=== PATIENT | male | born 1985 ===

== ENCOUNTER 2020-05-08 09:52 | Inpatient (IN) | payer OTHER ==
[~2020-05-08] VITALS: Ht 167.6 cm; Wt 86.4 kg
[2020-05-08 10:33] LABS: BASOPHILS 0.2 % (0-2); EOSINOPHILS 0.1 % (0-7); HEMATOCRIT 44.4 % (42.0-54.0); HEMOGLOBIN 15.8 g/dL (13.5-17.5); IMMATURE GRANULOCYTES 2.8 % (0-5); LYMPHOCYTE ABS# 2.03 10x3/uL (1.32-3.57); LYMPHOCYTES 10.8 % (15-50); MCH 31.4 pg (26.0-34.0); MCHC 35.6 g/dL (31.0-37.0); MCV 88.3 fL (80.0-100.0); MEAN PLATELET VOLUME 9.5 fL (7.4-10.4); MONOCYTES 6.2 % (2-11); NEUTROPHILS 79.9 % (40-80); PLATELET COUNT 231 10x3/uL (130-400); RBC 5.03 10x6/uL (4.20-6.10); RDW 12.8 % (11.5-14.5); WBC 18.8 10x3/uL (4.8-10.8)
[2020-05-08 10:41] LABS: CALC OSMOLALITY 274 mosm/kg (275-300); CALCIUM 8.9 mg/dL (8.5-10.1); CHLORIDE - SERUM 102 mmol/L (98-107); GLUCOSE 140 mg/dL (74-106); POTASSIUM - SERUM 3.3 mmol/L (3.5-5.1); SODIUM 135 mmol/L (136-145); UREA NITROGEN 22 mg/dL (7-18); eGFR NON AFRICAN AMERICAN 90 mL/min (90-120)
[2020-05-08 10:49] LABS: APTT 22.6 SECONDS (22.8-39.4); INR 1.02 (0.85-1.17); PROTIME 12.4 SECONDS (11.6-15.0)
[2020-05-08 10:59] LABS: ALBUMIN 3.6 g/dL (3.4-5.0); ALKALINE PHOSPHATASE 78 U/L (30-120); ALT (SGPT) 58 U/L (10-68); BILIRUBIN - TOTAL 0.32 mg/dL (0.2-1.3); CKMB 0.3 U/L (0.0-3.6); CREATINE KINASE 17 UL (21-232); PRO BNP 49 pg/mL (0-125); PROTEIN - SERUM 6.5 g/dL (6.4-8.2); TROPONIN-I < 0.017 ng/mL (0.000-0.060)
[2020-05-08 11:04] VITALS: BP 116/73
[2020-05-08 12:09] VITALS: BP 124/84
--- NOTE | 2020-05-08 12:25 | NUR ---
FLU, STREP, AND RSV SWABS OBTAINED AND SENT TO THE LAB.
[2020-05-08 12:54] LABS: INFLUENZA TYPE A NEGATIVE (NEGATIVE); INFLUENZA TYPE B NEGATIVE (NEGATIVE)
[2020-05-08 13:00] VITALS: BP 117/73
[2020-05-08 13:03] LABS: BILIRUBIN NEGATIVE (NEGATIVE); KETONE NEGATIVE (NEGATIVE); NITRITE NEGATIVE (NEGATIVE); UROBILINOGEN NORMAL mg/dL (< 2)
[2020-05-08 14:06] VITALS: BP 132/78
[2020-05-08 15:00] VITALS: BP 120/51
[2020-05-08 16:26] LABS: ERYTHROCYTE SEDIMENTATION RATE 3 mm/hr (0-15)
--- NOTE | 2020-05-08 19:00 | NUR ---
REPORT TO SEVERO GODWIN
--- NOTE | 2020-05-08 20:19 | NUR ---
PT FROM ER VIA W/C AT THIS TIME, PT AMBULATED TO BED, NO DISTRESS NOTED, CL IN REACH, SR UP X 2.
[2020-05-09 01:10] VITALS: BP 129/75; Ht 167.6 cm; Wt 86.4 kg
[2020-05-09 04:00] VITALS: BP 123/72
[2020-05-09 06:13] LABS: INR 1.11 (0.85-1.17); PROTIME 13.2 SECONDS (11.6-15.0)
[2020-05-09 06:14] LABS: APTT 25.5 SECONDS (22.8-39.4)
[2020-05-09 06:18] LABS: BASOPHILS 0.1 % (0-2); EOSINOPHILS 0 % (0-7); HEMATOCRIT 42.9 % (42.0-54.0); HEMOGLOBIN 14.5 g/dL (13.5-17.5); IMMATURE GRANULOCYTES 2.2 % (0-5); LYMPHOCYTE ABS# 1.12 10x3/uL (1.32-3.57); LYMPHOCYTES 7.4 % (15-50); MCH 30.7 pg (26.0-34.0); MCHC 33.8 g/dL (31.0-37.0); MCV 90.7 fL (80.0-100.0); MEAN PLATELET VOLUME 9.7 fL (7.4-10.4); MONOCYTES 4.7 % (2-11); NEUTROPHIL ABS# 12.99 10x3/uL (1.78-5.38); NEUTROPHILS 85.6 % (40-80); PLATELET COUNT 240 10x3/uL (130-400); RBC 4.73 10x6/uL (4.20-6.10); WBC 15.2 10x3/uL (4.8-10.8)
--- NOTE | 2020-05-09 07:20 | NUR ---
LYING IN BED, AWAKE/ALERT/ORIENTED, T/R SELF AD LORIN, CONT OF B/B WITH BRPs PER SELF AD LORIN, DENIES PAIN/OTHER DISCOMFORT AT THIS TIME, CALL LIGHT/PHONE/WATER WITHIN REACH, NO S/S OF ACUTE DISTRESS OBSERVED.
[2020-05-09 07:26] LABS: ALBUMIN 3.2 g/dL (3.4-5.0); ALKALINE PHOSPHATASE 61 U/L (30-120); ALT (SGPT) 50 U/L (10-68); BILIRUBIN - TOTAL 0.21 mg/dL (0.2-1.3); CALCIUM 8.3 mg/dL (8.5-10.1); CARBON DIOXIDE 23.5 mmol/L (21.0-32.0); CHLORIDE - SERUM 105 mmol/L (98-107); CREATININE - SERUM 0.9 mg/dL (0.6-1.3); GLUCOSE 140 mg/dL (74-106); MAGNESIUM - SERUM 2.1 mg/dL (1.8-2.4); SODIUM 137 mmol/L (136-145); eGFR NON AFRICAN AMERICAN > 90 mL/min (90-120)
[2020-05-09 07:27] LABS: CALC OSMOLALITY 276 mosm/kg (275-300); POTASSIUM - SERUM 4.2 mmol/L (3.5-5.1); UREA NITROGEN 15 mg/dL (7-18)
[2020-05-09 08:39] VITALS: BP 125/70
[2020-05-09 12:24] VITALS: BP 128/77
[2020-05-09 16:01] VITALS: BP 138/70
--- NOTE | 2020-05-09 18:03 | NUR ---
Obtained nasal swab for covid pcr testing after explaining procedure to pt who agreed to the test, tagged/bagged/sent to lab at this time.
--- NOTE | 2020-05-09 19:30 | NUR ---
PT IN BED, AAO X 3, RESP EVEN AND UNLABORED, NO DISTRESS NOTED, CL IN REACH, SR UP X 2.
[2020-05-09 20:00] VITALS: BP 126/74
[2020-05-10 05:29] LABS: BASOPHILS 0.1 % (0-2); EOSINOPHILS 0 % (0-7); HEMATOCRIT 44.1 % (42.0-54.0); HEMOGLOBIN 14.8 g/dL (13.5-17.5); IMMATURE GRANULOCYTES 2.3 % (0-5); LYMPHOCYTE ABS# 1.04 10x3/uL (1.32-3.57); LYMPHOCYTES 5.4 % (15-50); MCH 30.7 pg (26.0-34.0); MCHC 33.6 g/dL (31.0-37.0); MCV 91.5 fL (80.0-100.0); MEAN PLATELET VOLUME 9.8 fL (7.4-10.4); MONOCYTES 5.4 % (2-11); NEUTROPHIL ABS# 16.64 10x3/uL (1.78-5.38); NEUTROPHILS 86.8 % (40-80); PLATELET COUNT 258 10x3/uL (130-400); RBC 4.82 10x6/uL (4.20-6.10); RDW 13.2 % (11.5-14.5)
[2020-05-10 05:37] LABS: WBC 19.2 10x3/uL (4.8-10.8)
[2020-05-10 05:44] LABS: ALBUMIN 3.4 g/dL (3.4-5.0); ALKALINE PHOSPHATASE 80 U/L (30-120); ALT (SGPT) 60 U/L (10-68); BILIRUBIN - TOTAL 0.23 mg/dL (0.2-1.3); CALCIUM 8.4 mg/dL (8.5-10.1); CARBON DIOXIDE 26.6 mmol/L (21.0-32.0); CHLORIDE - SERUM 104 mmol/L (98-107); CREATININE - SERUM 0.9 mg/dL (0.6-1.3); GLUCOSE 180 mg/dL (74-106); MAGNESIUM - SERUM 2.3 mg/dL (1.8-2.4); PHOSPHOROUS 4.2 mg/dL (2.5-4.9); POTASSIUM - SERUM 3.9 mmol/L (3.5-5.1); PROTEIN - SERUM 6.2 g/dL (6.4-8.2); SODIUM 139 mmol/L (136-145); eGFR NON AFRICAN AMERICAN > 90 mL/min (90-120)
[2020-05-10 05:50] LABS: CALC OSMOLALITY 284 mosm/kg (275-300); UREA NITROGEN 19 mg/dL (7-18)
--- NOTE | 2020-05-10 06:29 | NUR ---
I have reviewed this patient and I concur with the Shift Assessment completed by the Licensed Practical Nurse today this shift.
--- NOTE | 2020-05-10 07:30 | NUR ---
Lying in bed, awake/alert/oriented, t/r self ad cleve, cont of b/b with BRPs per self ad cleve, denies pain/other discomfort at this time, call light/phone/water within reach, no s/s of acute distress observed.
[2020-05-10 08:00] VITALS: BP 130/67
[2020-05-10 12:05] VITALS: BP 130/67
[2020-05-10 15:00] VITALS: BP 120/73
--- NOTE | 2020-05-10 19:30 | NUR ---
PT IN BED, AAO X 4, RESP EVEN AND UNLABORED, NO DISTRESS NOTED, CL IN REACH, SR UP X 2.
[2020-05-10 19:50] VITALS: BP 157/77
--- NOTE | 2020-05-11 01:08 | NUR ---
I have reviewed this patient and I concur with the Shift Assessment completed by the Licensed Practical Nurse today this shift.
[2020-05-11 04:00] VITALS: BP 146/81
[2020-05-11 04:48] LABS: BASOPHILS 0.1 % (0-2); EOSINOPHILS 0 % (0-7); HEMATOCRIT 44.4 % (42.0-54.0); HEMOGLOBIN 14.7 g/dL (13.5-17.5); IMMATURE GRANULOCYTES 4.7 % (0-5); LYMPHOCYTE ABS# 1.35 10x3/uL (1.32-3.57); LYMPHOCYTES 7.3 % (15-50); MCH 30.3 pg (26.0-34.0); MCHC 33.1 g/dL (31.0-37.0); MCV 91.5 fL (80.0-100.0); MEAN PLATELET VOLUME 9.5 fL (7.4-10.4); MONOCYTES 3.2 % (2-11); NEUTROPHIL ABS# 15.78 10x3/uL (1.78-5.38); NEUTROPHILS 84.7 % (40-80); PLATELET COUNT 244 10x3/uL (130-400); RBC 4.85 10x6/uL (4.20-6.10); RDW 13.4 % (11.5-14.5); WBC 18.6 10x3/uL (4.8-10.8)
[2020-05-11 05:09] LABS: ALBUMIN 3.4 g/dL (3.4-5.0); ANION GAP 10.2 mmol/L (8-16); BILIRUBIN - TOTAL 0.33 mg/dL (0.2-1.3); CALCIUM 8.6 mg/dL (8.5-10.1); CARBON DIOXIDE 27.8 mmol/L (21.0-32.0); MAGNESIUM - SERUM 2.3 mg/dL (1.8-2.4); PHOSPHOROUS 4.5 mg/dL (2.5-4.9); PROTEIN - SERUM 6.3 g/dL (6.4-8.2)
[2020-05-11 05:23] LABS: CREATININE - SERUM 1.2 mg/dL (0.6-1.3)
--- NOTE | 2020-05-11 07:00 | NUR ---
PT SITTING UP IN BED. RESP EVEN AND UNLABORED. AAO X4. PT DENIES NEEDS AT THIS TIME. CALL LIGHT AND WATER WITHIN REACH. BED IN LOWEST POSITION. SIDE RAILS X2.
[2020-05-11 09:48] VITALS: BP 137/84
[2020-05-11 12:17] VITALS: BP 138/89
[2020-05-11] MEDS ORDERED: STROMECTOL 3 MG3 MG PO (14:37)
[2020-05-11] MEDS ORDERED: NICODERM CQ1 EAC3 TRANSDERM (14:38)
[2020-05-11] MEDS ORDERED: VENTOLIN HFA [SP8 GM INH ×2 (14:38)
[2020-05-11] MEDS ORDERED: MELATONIN 3 MG1 TAB PO (14:39)
[2020-05-11] MEDS ORDERED: DULERA 200 MCG8.8 GM INH (14:39)
[2020-05-11] MEDS ORDERED: VITAMIN D325 MC1 PO (14:39)
[2020-05-11] MEDS ORDERED: ZINC-220220 MG PO (14:39)
[2020-05-11] MEDS ORDERED: MUCINEX600 MG PO (14:39)
[2020-05-11] MEDS ORDERED: PROTONIX40 MG PO (14:39)
[2020-05-11] MEDS ORDERED: FLORAJEN3 CAPS460 MG PO (14:39)
[2020-05-11] MEDS ORDERED: TESSALON PERLE100 MG PO (14:39)
[2020-05-11] MEDS ORDERED: PREDNISONE10 MG PO (14:40)
[2020-05-11] MEDS ORDERED: ASCORBIC ACID500 MG PO (14:40)
[2020-05-11] MEDS ORDERED: OMNICEF300 MG PO (14:41)
[2020-05-11] MEDS ORDERED: VIBRAMYCIN 100100 MG PO (14:41)
[2020-05-11] MEDS ORDERED: IBUPROFEN800 MG PO (15:04)
--- NOTE | 2020-05-11 16:11 | NUR ---
I have reviewed this patient and I concur with the Shift Assessment completed by the Licensed Practical Nurse today this shift.
--- NOTE | 2020-05-13 21:03 | MORECARE ---
CASE MANAGEMENT DISCHARGE SUMMARY PATIENT: CLAUDIA STEPHEN UNIT: [id number] ADM DATE: 05/08/20 AGE: 34 : 81 SEX: M ROOM/BED: D.213 AUTHOR: NELY,DOC PHYSICIAN: REFERRING PHYSICIAN: XI BUENROSTRO MD DATE OF SERVICE: 05/13/20 Case Management Discharge Planning Summary DCP REVIEW SUMMARY ANTICIPATED D/C DATE: EXPECTED LOS : CASE STATUS: DCP Initiated INITIAL REVIEW: 05/08/2020 INITIAL REVIEWER: Charlee Washington FINAL DISCHARGE DISPOSITION: 01 : Home or Self Care (Routine Discharge) FINAL REVIEWER: Charlee Washington FINAL REVIEW DATE: 05/11/2020 DCP Focus Questions & Answers DCP REV -DCP Review Added on: 05/13/20 9:00 pm QUESTION: ANSWER DCP Evaluation Physical Status: : Independent with ADL's Baseline cognitive status: : *Oriented to person, place, situation, time and present Patient's ability to cope with chronic illness : d. No chronic illness Mental health screen: : No mental health history Patient's current cognitive status: : *Oriented to person, place, situation, time and present Functional screen assessment: : Basic needs can adequately be met by self Would patient like to participate in any Care Coordination programs (if applicable): : Not applicable DCP Re-evaluation Would patient like to participate in any Care Coordination programs (if applicable): : Not applicable PATIENT: CLAUDIA STEPHEN ENCOUNTER: [id number] MEDICAL RECORD#: [id number] ADMISSION DATE: 05/08/2020 DISCHARGE DATE: 05/11/2020 ATTENDING MD: XI ONTIVEROS : AGE: 34 MARITAL STATUS: S DC PLAN ID: [id number] FACILITY: [facility] PRINTED ON: 05/13/20 21:03 CT All edits/amendments must be made on the electronic document DICTATION DATE: 05/13/202101 MEDICAL AIDES TEACHER: GREG 05/13/202101 RPT#: [id number] DC DATE:05/11/20 STATUS: DIS IN [facility] [address] [place] [address] END OF REPORT
--- NOTE | 2020-05-13 21:13 | MORECARE ---
CASE MANAGEMENT DISCHARGE SUMMARY PATIENT: CLAUDIA STEPHEN UNIT: [id number] ADM DATE: 05/08/20 AGE: 34 : 81 SEX: M ROOM/BED: D.2131 AUTHOR: NELYDOC PHYSICIAN: REFERRING PHYSICIAN: XI BUENROSTRO MD DATE OF SERVICE: 05/13/20 Case Management Discharge Planning Summary COMMENTS ENTERED DATE: 05/13/20 21:00 CT COMMENT TYPE: Discharge Planning REVIEWER: Charlee Washington LATE ENTRY 05/11/20 CM called into patient's room and spoke with him briefly. Patient plans to discharge back to his home where he is independent. Patient denied any discharge needs. Patient stated that he had family that will pick him up. CM will follow as needed DCP REVIEW SUMMARY ANTICIPATED D/C DATE: EXPECTED LOS : CASE STATUS: DCP Initiated INITIAL REVIEW: 05/08/2020 INITIAL REVIEWER: Charlee Washington FINAL DISCHARGE DISPOSITION: 01 : Home or Self Care (Routine Discharge) FINAL REVIEWER: Charlee Washington FINAL REVIEW DATE: 05/11/2020 DCP Focus Questions & Answers DCP REV -DCP Review Added on: 05/13/20 9:00 pm QUESTION: ANSWER DCP Evaluation Physical Status: : Independent with ADL's Baseline cognitive status: : *Oriented to person, place, situation, time and present Patient's ability to cope with chronic illness : d. No chronic illness Mental health screen: : No mental health history Patient's current cognitive status: : *Oriented to person, place, situation, time and present Functional screen assessment: : Basic needs can adequately be met by self Would patient like to participate in any Care Coordination programs (if applicable): : Not applicable DCP Re-evaluation Would patient like to participate in any Care Coordination programs (if applicable): : Not applicable PATIENT: CLAUDIA STEPHEN ENCOUNTER: [id number] MEDICAL RECORD#: [id number] ADMISSION DATE: 05/08/2020 DISCHARGE DATE: 05/11/2020 ATTENDING MD: XI ONTIVEROS : AGE: 34 MARITAL STATUS: S DC PLAN ID: [id number] FACILITY: [facility] PRINTED ON: 05/13/20 21:13 CT All edits/amendments must be made on the electronic document DICTATION DATE: 05/13/202112 LANDMAN: GREG 05/13/202112 RPT#: [id number] DC DATE:05/11/20 STATUS: DIS IN [facility] [address] [facility] [place] [place] [address] END OF REPORT
--- NOTE | 2020-05-15 07:54 | MORECARE ---
CASE MANAGEMENT DISCHARGE SUMMARY PATIENT: CLAUDIA STEPHEN UNIT: [id number] ADM DATE: 05/08/20 AGE: 34 : 81 SEX: M ROOM/BED: D.2131 AUTHOR: NELYDOC PHYSICIAN: REFERRING PHYSICIAN: XI BUENROSTRO MD DATE OF SERVICE: 05/15/20 Case Management Discharge Planning Summary COMMENTS ENTERED DATE: 05/13/20 21:00 CT COMMENT TYPE: Discharge Planning REVIEWER: Charlee Washington LATE ENTRY 05/11/20 CM called into patient's room and spoke with him briefly. Patient plans to discharge back to his home where he is independent. Patient denied any discharge needs. Patient stated that he had family that will pick him up. CM will follow as needed DCP REVIEW SUMMARY ANTICIPATED D/C DATE: EXPECTED LOS : CASE STATUS: DCP Initiated INITIAL REVIEW: 05/08/2020 INITIAL REVIEWER: Charlee Washington FINAL DISCHARGE DISPOSITION: 01 : Home or Self Care (Routine Discharge) FINAL REVIEWER: Charlee Washington FINAL REVIEW DATE: 05/11/2020 DCP Focus Questions & Answers DCP REV -DCP Review Added on: 05/13/20 9:00 pm QUESTION: ANSWER DCP Evaluation Physical Status: : Independent with ADL's Baseline cognitive status: : *Oriented to person, place, situation, time and present Patient's ability to cope with chronic illness : d. No chronic illness Mental health screen: : No mental health history Patient's current cognitive status: : *Oriented to person, place, situation, time and present Functional screen assessment: : Basic needs can adequately be met by self Would patient like to participate in any Care Coordination programs (if applicable): : Not applicable DCP Re-evaluation Would patient like to participate in any Care Coordination programs (if applicable): : Not applicable PATIENT: CLAUDIA STEPHEN ENCOUNTER: [id number] MEDICAL RECORD#: [id number] ADMISSION DATE: 05/08/2020 DISCHARGE DATE: 05/11/2020 ATTENDING MD: XI ONTIVEROS : AGE: 34 MARITAL STATUS: S DC PLAN ID: [id number] FACILITY: [facility] PRINTED ON: 05/15/20 7:54 CT All edits/amendments must be made on the electronic document DICTATION DATE: 05/15/20 0754 CYLINDER BLOCK MECHANIC: GREG 05/15/20 0754 RPT#: [id number] DC DATE:05/11/20 STATUS: DIS IN [facility] [address] [facility] [place] [address] END OF REPORT
== END 2020-05-11 17:24 | disposition home or self-care (01) | DRG 179 ==
LOC: D.ER 09:52 → D.M2 18:42
PROVIDERS: Emergency Medicine; ADMIT Emergency Medicine; ATTEND Emergency Medicine
DX: U07.1 COVID-19 (principal); R09.02 Hypoxemia; E87.6 Hypokalemia; D72.829 Elevated white blood cell count, unspecified